=== PATIENT | female | born 2000 ===

== ENCOUNTER 2019-03-24 06:31 | Inpatient (IN) | payer MEDICAID ==
[2019-03-24] MEDS ORDERED: OXYTOCIN DRIP 30 UNITS/500 ML BAG IV SCH (08:00)
[2019-03-24] MEDS ORDERED: LACTATED RINGERS 1,000 ML IV SCH (08:00)
[2019-03-24] MEDS: LACTATED RINGERS 1,000 ML IV SCH ×2 (08:45→16:38)
[2019-03-24 08:53] LABS: Basophils % (Auto) 0.3 % (0.0-1.8); Eosinophils % (Auto) 0.5 % (0.0-4.3); Hematocrit 37.8 % (30.3-42.9); Hemoglobin 13.1 gm/dl (10.1-14.3); Lymphocytes # (Auto) 1.4 K/mm3 (1.2-5.4); Lymphocytes % (Auto) 14.3 % (13.4-35.0); Mean Corpuscular HGB Conc 35 % (30-34); Mean Corpuscular Volume 84 fl (79-97); Monocytes # (Auto) 0.5 K/mm3 (0.0-0.8); Monocytes % (Auto) 4.5 % (0.0-7.3); Platelet Count 232 K/mm3 (140-440); Red Cell Distribution Width 13.7 % (13.2-15.2)
[2019-03-24] MEDS ORDERED: ONDANSETRON 4 MG/2 ML INJ IV PRN ×2 (09:00→18:48)
[2019-03-24] MEDS ORDERED: fentaNYL 100 MCG/2 ML INJ IV PRN (09:00)
[2019-03-24] MEDS ORDERED: NALOXONE 0.4 MG/1 ML INJ IV PRN (09:00)
[2019-03-24] MEDS ORDERED: TERBUTALINE 1 MG/1 ML INJ IVP PRN (09:00)
[2019-03-24] MEDS ORDERED: BUTORPHANOL 2 MG/1 ML INJ IV PRN (09:00)
[2019-03-24] MEDS ORDERED: LIDOCAINE (2%) 20 MG/1 ML VIAL 20 ML MDV INFILTRATI NR (09:00)
[2019-03-24] MEDS ORDERED: TERBUTALINE 1 MG/1 ML INJ SUB-Q PRN (09:00)
[2019-03-24] MEDS ORDERED: PROMETHAZINE 25 MG TAB PO PRN ×2 (09:00→18:48)
[2019-03-24] MEDS ORDERED: MINERAL OIL 30 ML ORAL LIQD PO PRN (09:00)
[2019-03-24] MEDS ORDERED: ePHEDrine SULFATE 50 MG/1 ML INJ IV PRN (09:00)
[2019-03-24] MEDS: OXYTOCIN DRIP 30 UNITS/500 ML BAG IV SCH ×2 (09:40→10:28)
--- NOTE | 2019-03-24 13:17 | History and Physical Report ---
History of Present Illness Date of examination: 03/24/19 Date of admission: 03/24/19 06:32 Chief complaint: Leaking fluid History of present illness: Pt is a 19 yo at 37.6 weeks EGA who presents with leaking fluid since 0604 this morning. She reports occasional contractions, positive movement, and no vaginal bleeding. She has received care with [facility] since 12 weeks EGA. Her course has been complicated by short cervix t hat resolved. She is GBS negative. Past History Past Medical History: no pertinent history Past Surgical History: other (left leg extension) Family/Genetic History: none Social history: no significant social history - Obstetrical History Expected Date of Delivery: 04/08/19 Actual Gestation: 37 Week(s) 6 Day(s) : 1 Para: 0 Number of Living Children: 0 Medications and Allergies Allergies Allergy/AdvReac Type Severity Reaction Status Date / Time No Known Allergies Allergy Unverified 03/24/19 07:36 Active Meds: Active Medications Butorphanol Tartrate (Stadol) 2 mg IV Q2H PRN PRN Reason: Pain , Severe (7-10) Ephedrine Sulfate (Ephedrine Sulfate) 10 mg IV Q2M PRN PRN Reason: Hypotension Fentanyl (Sublimaze) 100 mcg IV Q2H PRN PRN Reason: Labor Pain Oxytocin/Sodium Chloride (Pitocin/Ns 20 Unit/1000ml Drip) 20 units in 1,000 mls @ 125 mls/hr IV DIRECT RAFFI Oxytocin/Sodium Chloride (Pitocin/Ns 30 Unit/500ml) 30 units in 500 mls @ 1 mls/hr IV TITR RAFFI; Protocol Last Titration: 03/24/19 12:07 Dose: 4 milliunits/min, 4 mls/hr Documented by: Oxytocin/Sodium Chloride (Pitocin/Ns 30 Unit/500ml) 30 units in 500 mls @ 2 mls/hr IV TITR RAFFI; Protocol Lactated Ringer's (Lactated Ringers) 1,000 mls @ 125 mls/hr IV DIRECT RAFFI Last Admin: 03/24/19 08:45 Dose: 125 mls/hr Documented by: Lidocaine (Xylocaine 2%) 20 ml INFILTRATI ONCE NR Stop: 03/25/19 08:59 Mineral Oil (Mineral Oil) 30 ml PO QHS PRN PRN Reason: Constipation Naloxone HCl (Naloxone) 0.1 mg IV Q2MIN PRN PRN Reason: Res Rate </= 8 or 02 SAT < 92% Ondansetron HCl (Zofran) 4 mg IV Q8H PRN PRN Reason: Nausea And Vomiting Promethazine HCl (Phenergan) 25 mg PO Q6H PRN PRN Reason: Nausea And Vomiting Terbutaline Sulfate (Brethine) 0.25 mg SUB-Q ONCE PRN PRN Reason: Hyperstimulation/Hypertonicity Terbutaline Sulfate (Brethine) 0.25 mg IVP ONCE PRN PRN Reason: Hyperstimulation/Hypertonicity Review of Systems All systems: negative Genitourinary: leakage of fluid, contractions, no vaginal bleeding, no vaginal discharge - Vital Signs Vital signs: Vital Signs Pulse BP 79 120/75 03/24/19 06:53 03/24/19 06:53 Temp Pulse Resp BP Pulse Ox 98.5 F 110 H 18 112/66 68 L 03/24/19 06:59 03/24/19 13:10 03/24/19 06:59 03/24/19 12:56 03/24/19 13:10 - Physical Exam Abdomen: Positive: soft Uterus: Positive: enlarged (gravid) - Obstetrical FHR: category 1 Uterine Contraction Monitor Mode: External Cervical Dilatation: 5 Cervical Effacement Percentage: 70 station: -2 Uterine Contraction Pattern: Irregular Results Result Diagrams: 03/24/19 08:28 Abnormal lab results 03/24/19 Range/Units 08:28 MCHC 35 H (30-34) % Seg Neutrophils % 80.4 H (40.0-70.0) % Seg Neutrophils # 8.2 H (1.8-7.7) K/mm3 All other labs normal. Assessment and Plan 19 yo at 37.6 weeks EGA SROM with advanced dilatation GBS negative Admit for augmentation Pain relief as requested Anticipate
--- NOTE | 2019-03-24 13:19 | Event Note ---
Date: 03/24/19 Renick not tracking well. Pt reports contractions q3-4 minutes. SVE /-2. Attempted IUPC insertion with sterile technique x2, copious bloody flashback observed twice. Readjusted toco, tracking well, no further attempts at IUPC placement.
--- NOTE | 2019-03-24 17:24 | Event Note ---
Date: 03/24/19 Pt has had an anterior lip for over an hour. Regular uterine contractions. IUPC placed, Pitocin increased. Early decelerations noted. Trial of pushing, lip is not reducible. Continue to labor down. Anticipate .
[2019-03-24] MEDS: OXYTOCIN 20 UNIT/1000ML DRIP 20 UNITS/1,000 ML BAG IV SCH ×2 (18:18→20:52)
[2019-03-24] MEDS ORDERED: PROMETHAZINE 25 MG RECT SUPP PR PRN (18:48)
[2019-03-24] MEDS ORDERED: LANOLIN/ZINC/DIMETHICONE (LANSINOH) 7 GM TP PRN (18:48)
[2019-03-24] MEDS ORDERED: ACETAMINOPHEN 325 MG TAB PO PRN (18:48)
[2019-03-24] MEDS ORDERED: MAGNESIUM HYDROXIDE (MOM) ORAL LIQD UDC PO PRN (18:48)
[2019-03-24] MEDS ORDERED: WITCH HAZEL/ GLYCERIN PAD TP PRN (18:48)
[2019-03-24] MEDS ORDERED: diphenhydrAMINE 25 MG CAP PO PRN (18:48)
--- NOTE | 2019-03-24 19:04 | Procedure Note ---
OB Delivery Note - Delivery Date of Delivery: 03/24/19 Surgeon: CAROLYN EWING ([facility]) Estimated blood loss: 100cc - Vaginal Delivery presentation: vertex Delivery position: OA Intrapartum events: PROM->1hr before delivery Delivery induction: none Delivery augmentation: pitocin Delivery monitor: external FHT Route of delivery: Delivery placenta: spontaneous Delivery cord: nuchal cord Episiotomy: none Delivery laceration: 1st degree Delivery repair: vicryl Anesthesia: local Delivery comments: Pt progressed to c/c/+1. Excellent maternal effort resulted in of vigorous male infant at 1613. Head delivered OA, restituted LOT, shoulders followed after manual rotation to direct OA. Loose nuchal cord reduced on perineum. Infant to maternal abdomen, stimulated and bulb suctioned. Placenta followed swiftly, Nicole, spontaneous and intact. 3vc no abnormalities noted. Medium clot expressed with fundal massage. Pitocin infusing, fundus firm. Cord clamped and cut. 1st degree perineal laceration noted. Lidocaine administered locally, laceration repaired with 2-0 Vicryl to excellent hemostasis. - A at 1 minute: 8 at 5 minutes: 9 Gender: Male
[2019-03-24] MEDS ORDERED: FERROUS SULFATE 325 MG TAB PO SCH (22:00)
[2019-03-25] MEDS: IBUPROFEN 600 MG TAB PO SCH ×3 (01:24→13:00)
[2019-03-25 07:07] LABS: Hematocrit 32.8 % (30.3-42.9)
--- NOTE | 2019-03-25 08:43 | Progress Note ---
Assessment and Plan - Patient Problems (1) (normal spontaneous vaginal delivery) Current Visit: Yes Status: Acute Plan to address problem: patient doing well discharge home Subjective - Subjective Date of service: 03/25/19 Interval history: Patient without complaints. Reports pain is controlled. Ambulating without difficulty Patient reports: appetite normal, voiding normally, pain well controlled Olive: doing well Objective - Vital Signs Latest vital signs: Vital Signs Temp Pulse Resp BP BP Pulse Ox 03/25/19 08:13 97.4 F L 82 18 106/59 03/25/19 06:49 97.6 F 78 18 92/52 97 03/24/19 21:30 98.6 F 77 18 105/58 03/24/19 21:03 98.8 F 79 105/55 03/24/19 21:02 79 105/55 03/24/19 20:32 87 97/52 03/24/19 20:17 77 103/53 03/24/19 20:02 77 108/55 03/24/19 19:47 88 113/55 03/24/19 19:32 98 H 117/63 03/24/19 19:17 82 95/67 03/24/19 19:02 84 107/62 03/24/19 18:46 92 H 102/50 03/24/19 18:45 73 121/49 03/24/19 18:32 88 102/53 03/24/19 17:56 94 H 115/75 03/24/19 17:30 94 H 80 L 03/24/19 17:26 68 113/62 03/24/19 17:25 78 98 03/24/19 17:20 68 96 03/24/19 17:16 70 76 L 03/24/19 17:15 77 96 03/24/19 17:10 60 75 L 03/24/19 17:08 72 89 03/24/19 17:05 65 98 03/24/19 17:00 82 99 03/24/19 16:56 89 123/70 03/24/19 16:55 69 99 03/24/19 16:50 91 H 98 03/24/19 16:45 79 96 03/24/19 16:44 72 94 03/24/19 16:40 76 97 03/24/19 16:39 70 92 03/24/19 16:35 90 91 03/24/19 16:34 70 93 03/24/19 16:30 91 H 20 99 03/24/19 16:25 86 97 03/24/19 16:20 89 90 03/24/19 16:15 91 H 96 03/24/19 16:13 67 93 03/24/19 16:10 79 96 03/24/19 16:07 98 H 91 03/24/19 16:05 79 96 03/24/19 16:00 93 H 93 03/24/19 15:57 83 108/56 03/24/19 15:56 80 108/55 03/24/19 15:55 91 H 99 03/24/19 15:53 98 H 92 03/24/19 15:50 81 98 03/24/19 15:47 98 H 93 03/24/19 15:45 102 H 98 03/24/19 15:40 93 H 98 03/24/19 15:35 90 97 03/24/19 15:32 86 94 03/24/19 15:30 76 98 03/24/19 15:26 81 117/65 03/24/19 15:25 95 H 98 03/24/19 15:23 85 94 03/24/19 15:20 85 98 03/24/19 15:16 85 87 03/24/19 15:15 85 98 03/24/19 15:10 91 H 98 03/24/19 15:05 83 96 03/24/19 15:00 61 96 03/24/19 14:59 88 94 03/24/19 14:57 89 108/67 03/24/19 14:55 90 96 03/24/19 14:50 77 97 03/24/19 14:49 78 94 03/24/19 14:45 82 98 03/24/19 14:40 94 H 97 03/24/19 14:35 86 84 03/24/19 14:30 83 98 03/24/19 14:26 83 117/60 03/24/19 14:25 84 98 03/24/19 14:20 86 98 03/24/19 14:15 82 84 03/24/19 14:10 93 H 87 03/24/19 14:05 90 94 03/24/19 14:02 77 93 03/24/19 14:00 89 92 03/24/19 13:56 86 105/51 84 12/05/19 13:55 88 97 03/24/19 13:50 82 98 03/24/19 13:45 92 H 96 03/24/19 13:40 93 H 97 03/24/19 13:35 70 99 03/24/19 13:33 75 90 03/24/19 13:30 92 H 95 03/24/19 13:27 76 96/53 03/24/19 13:26 69 74 L 03/24/19 13:25 77 97 03/24/19 13:20 71 96 03/24/19 13:15 88 97 03/24/19 13:10 110 H 68 L 03/24/19 13:08 102 H 79 L 03/24/19 13:05 79 97 03/24/19 13:01 74 90 03/24/19 13:00 65 99 03/24/19 12:56 89 112/66 03/24/19 12:55 71 98 03/24/19 12:50 93 H 97 03/24/19 12:45 76 99 03/24/19 12:40 88 98 03/24/19 12:35 88 97 03/24/19 12:30 70 99 03/24/19 12:15 71 98 03/24/19 12:10 86 98 03/24/19 12:05 86 98 03/24/19 12:00 82 98 03/24/19 11:56 69 105/65 03/24/19 11:55 67 96 03/24/19 11:50 69 98 03/24/19 11:45 72 97 03/24/19 11:40 81 97 03/24/19 11:35 77 99 03/24/19 11:30 89 92 03/24/19 11:27 77 114/67 03/24/19 11:25 97 H 99 03/24/19 11:20 91 H 100 03/24/19 11:15 96 H 98 03/24/19 11:10 79 99 03/24/19 11:05 82 98 03/24/19 11:00 81 96 03/24/19 10:56 74 103/63 03/24/19 10:55 72 98 03/24/19 10:50 78 98 03/24/19 10:48 91 H 84 03/24/19 10:45 74 98 03/24/19 10:40 77 98 03/24/19 10:35 78 98 03/24/19 10:30 88 97 03/24/19 10:26 88 103/58 03/24/19 10:25 70 98 03/24/19 10:20 84 97 03/24/19 10:15 77 98 03/24/19 10:10 90 98 03/24/19 10:05 83 98 03/24/19 10:00 91 H 98 03/24/19 09:55 81 97 03/24/19 09:50 82 98 03/24/19 09:45 91 H 98 03/24/19 09:40 87 98 03/24/19 09:35 81 98 03/24/19 09:30 84 98 03/24/19 09:26 96 H 103/58 03/24/19 09:25 88 97 03/24/19 09:20 109 H 97 03/24/19 09:15 82 98 03/24/19 09:10 89 98 Intake and Output 03/24/19 03/25/19 03/25/19 22:59 06:59 14:59 Intake Total 1306.250 480 Output Total 450 Balance 1306.250 -450 480 Intake: IV 1306.250 Lactated Ringers 1,000 ml 985.417 @ 125 mls/hr IV DIRECT RAFFI Rx#:[id number] PITOCin/NS 20 UNIT/1000ML 320.833 DRIP 20 units In 1,000 ml @ 125 mls/hr IV DIRECT RAFFI Rx#:[id number] Oral 480 Output: Urine 450 Void 450 Other: Total, Intake Amount 480 Total, Output Amount 450 # Voids Void 1 Estimated Blood Loss 100 - Exam Abdomen: Present: normal appearance Uterus: Present: normal, firm - Labs Labs: Abnormal lab results 03/24/19 Range/Units 08:28 MCHC 35 H (30-34) % Seg Neutrophils % 80.4 H (40.0-70.0) % Seg Neutrophils # 8.2 H (1.8-7.7) K/mm3
--- NOTE | 2019-03-25 08:44 | Discharge Summary ---
Providers - Providers Date of Admission: 03/24/19 06:32 Date of discharge: 03/25/19 Attending physician: LANDON JAVIER MD Primary care physician: LANDON JAVIER MD Hospitalization Reason for admission: rupture of membranes Delivery: Discharge diagnosis: IUP at term delivered baby: male Hospital course: Patient admitted with +SROM. She had a . uncomplicated Condition at discharge: Good Disposition: DC-01 TO HOME OR SELFCARE - Discharge Diagnoses (1) (normal spontaneous vaginal delivery) Status: Acute Plan - Discharge Medications Prescriptions: Ferrous Sulfate [Ferrous Sulfate 324 MG] 324 mg PO BID #60 tablet. Ibuprofen [Motrin] 600 mg PO Q6H PRN #60 tablet PRN Reason: Pain HYDROcodone/APAP 5-325 [[place] 5/325] 1 each PO Q6HR PRN #20 tablet PRN Reason: Pain - Provider Discharge Summary Activity: no sex for 6 weeks, no heavy lifting 4 weeks, no strenuous exercise Diet: routine Instructions: routine Additional instructions: [] Smoking cessation referral if applicable(refer to patient education folder for contact #) [] Refer to [facility] Booklet Call your doctor immediately for: * Fever > 100.5 * Heavy vaginal bleeding ( >1 pad per hour) * Severe persistent headache * Shortness of breath * Reddened, hot, painful area to leg or breast * schedule followup in 4 weeks - Follow up plan
[2019-03-25] MEDS ORDERED: PRENATAL VIT27-FE FUMARATE-FOLIC ACID VIT TAB PO SCH (10:00)
[2019-03-25 17:43] VITALS: BP 101/62
== END 2019-03-25 16:25 | disposition home or self-care (01) | DRG 775 ==
LOC: TRG 06:31 → LD 06:32 → TRG 06:43 → OB 22:10
PROVIDERS: ADMIT Obstetrics & Gynecology; ATTEND Obstetrics & Gynecology
PROC: 10E0XZZ Delivery of Products of Conception, External Approach (ICD-10-PCS; principal; 2019-03-24)
PROC: 0HQ9XZZ Repair Perineum Skin, External Approach (ICD-10-PCS; 2019-03-24)
PROC: 10H07YZ Insertion of Other Device into Products of Conception, Via Natural or Artificial Opening (ICD-10-PCS; 2019-03-24)
DX: O69.1XX0 Labor and delivery complicated by cord around neck, with compression, not applicable or unspecified (principal); O42.92 Full-term premature rupture of membranes, unspecified as to length of time between rupture and onset of labor; O70.0 First degree perineal laceration during delivery; Z3A.37 37 weeks gestation of pregnancy; Z37.0 Single live birth
CPT/HCPCS: 36415; 85014; 85018; 85025; 86850; 86900; 86901; G0378; J2590; J3010; J7120